=== PATIENT | female | born 1955 | race African-American/Black ===

== ENCOUNTER 2016-09-21 23:10 | Emergency (ER) | payer BC, OTHER ==
[~2016-09-21 23:10] MED LIST: ACETAMINOPHEN PO; ACYCLOVIR PO; ADVIL200 M1 PO; ALEVE220 M1 PO; ANTI-INFLAMMATORY; BACTRIM DS TABL1 TA1 PO; CARAFATE PO; EPIPEN0.3 MG/0.1 INJ; FLEXERIL10 MG PO; HARVONI; HYDROCODON-ACE1 EAC7 PO; KEFLEX500 M1 PO; KEFLEX500 MG; LEXAPRO; LEXAPRO PO; LIDOCAINE VISCOU1 ML EXT; LISINOPRIL PO; LISINOPRIL-HCTZ1 T14 PO; LODINE XL PO; LORTAB 5-325 M1 EACH PO; LORTAB 7.51 TAB PO; MEDROL DOSEPAK4 MG PO; MEDROL4 MG/DOSE- PO; MOTRIN400 MG PO; NAPROXEN PO; NORCO1 TAB 10/3 PO; OXYCODONE HCL5 M1; OXYCONTIN PO; PERCOCET 7.5-31 EACH PO; PERCOCET7.5 PO; PROTONIX PO; PYRIDIUM100 MG PO; ROBAXIN500 MG PO; SKELAXIN PO; TRAMADOL HCL50 M1 PO; ULTRAM PO; VISTARIL PO; VOLTAREN75 MG PO; XARELTO10 MG PO; ZESTORETIC; ZESTORETIC PO; ZESTRIL40 MG PO; ZETIA PO; ZOFRAN ODT4 MG SL
[2016-09-22 00:37] LABS: URINE SOURCE CLEAN CATCH
[2016-09-22 00:47] LABS: URINE APPEARANCE CLEAR; URINE BILIRUBIN NEG (NEG); URINE BLOOD NEG (NEG); URINE COLOR YELLOW; URINE GLUCOSE NEG (NORM); URINE KETONE NEG (NEG); URINE LEUKOCYTE ESTERASE NEG (NEG); URINE NITRATE NEG (NEG); URINE PH 5.5 (5-8); URINE PROTEIN NEG (NEG); URINE SPECIFIC GRAVITY >=1.030 (1.003-1.035)
[2016-09-22 00:48] LABS: MICRO INDICATED? NO
== END 2016-09-22 01:10 | disposition home or self-care (01) ==
LOC: SED 23:10
PROVIDERS: Nurse Practitioner Family
DX: S76.112A Strain of left quadriceps muscle, fascia and tendon, initial encounter (principal); S76.111A Strain of right quadriceps muscle, fascia and tendon, initial encounter; S39.012A Strain of muscle, fascia and tendon of lower back, initial encounter; I10 Essential (primary) hypertension; F43.10 Post-traumatic stress disorder, unspecified; Z91.030 Bee allergy status; Z88.6 Allergy status to analgesic agent; Z88.8 Allergy status to other drugs, medicaments and biological substances; Z79.899 Other long term (current) drug therapy; X50.9XXA Other and unspecified overexertion or strenuous movements or postures, initial encounter
CPT/HCPCS: 81003; 99283